=== PATIENT | male | born 2000 | race Caucasian/White ===

== ENCOUNTER 2021-09-25 08:55 | Emergency (ER) | payer OTHER ==
[~2021-09-25] VITALS: Ht 177.8 cm; Wt 68.2 kg
[2021-09-25 09:50] VITALS: BP 114/70
== END 2021-09-25 09:56 | disposition home or self-care (01) ==
LOC: ED 08:55
DX: S61.012A Laceration without foreign body of left thumb without damage to nail, initial encounter (principal); Z28.310 Unvaccinated for COVID-19; W26.0XXA Contact with knife, initial encounter; Y92.59 Other trade areas as the place of occurrence of the external cause; Y99.0 Civilian activity done for income or pay